=== PATIENT | female | born 1985 | race Caucasian/White ===

== ENCOUNTER 2017-05-02 13:41 | Emergency (ER) | payer SELFPAY | END 2017-05-02 15:40 | LOC: ED 13:41 | DX: N93.9 Abnormal uterine and vaginal bleeding, unspecified (principal); Z53.21 Procedure and treatment not carried out due to patient leaving prior to being seen by health care provider ==

== ENCOUNTER 2018-02-28 14:49 | Emergency (ER) | payer MEDICAID ==
[2018-02-28 15:16] LABS: Basophils % (Auto) 0.6 % (0.0-1.8); Eosinophils % (Auto) 0.3 % (0.0-4.3); Hematocrit 36.1 % (30.3-42.9); Hemoglobin 12.3 gm/dl (10.1-14.3); Lymphocytes # (Auto) 1.5 K/mm3 (1.2-5.4); Mean Corpuscular HGB Conc 34 % (30-34); Mean Corpuscular Hemoglobin 31 pg (28-32); Mean Corpuscular Volume 90 fl (79-97); Monocytes # (Auto) 0.5 K/mm3 (0.0-0.8); Monocytes % (Auto) 7.6 % (0.0-7.3); Platelet Count 388 K/mm3 (140-440); Red Blood Count 4.03 M/mm3 (3.65-5.03); Red Cell Distribution Width 15.5 % (13.2-15.2)
[2018-02-28 15:48] VITALS: BP 135/87
--- NOTE | 2018-02-28 16:33 | Emergency Department Report ---
ED Female HPI - General Chief complaint: Vaginal Bleeding Stated complaint: BLEEDING EXCESSIVE Time Seen by Provider: 02/28/18 16:05 Source: patient Mode of arrival: Ambulatory Limitations: No Limitations - History of Present Illness Initial comments: Previously healthy 32-year-old female presents with 3 week history of persistent vaginal bleeding which began initially as spotting during the course of the day, but has progressed over the past 3 or 4 days to heavier bleeding, requiring patient to use upwards of a dozen tampons per day, Entex tampon so far today. She initially had no abdominal discomfort, but she now has a persistent bilateral lower pelvic discomfort, no back pain. She has no prior history of irregular vaginal bleeding or menstrual irregularities, and her last regular menstrual cycle was 4 weeks ago, February 03, lasting typical 5 days, and she typically has a heavy flow. She has a past history of anemia, but is fairly mild, managed primarily with diet and extra dietary iron She's not had any fever chills or diaphoresis, no dysuria, no nausea or vomiting , no back or extremity pain. Past medical history is one of good health, patient is , last child delivered by section 7 years ago. She did not had any vaginal or menstrual problems since that time, has been essentially asymptomatic, but has not had routine gynecologic care for at least 5 years, does not know last time she's had a Pap smear. - Related Data Previous Rx's Medication Instructions Recorded Last Taken Type Ibuprofen [Ibu] 800 mg PO TID PRN #30 tablet 02/28/18 Unknown Rx medroxyPROGESTERone ACETATE 10 mg PO DAILY #7 tablet 02/28/18 Unknown Rx [Medroxyprogesterone Acetate] Allergies Allergy/AdvReac Type Severity Reaction Status Date / Time amoxicillin Allergy Hives Verified 02/28/18 14:54 ED Review of Systems ROS: Stated complaint: BLEEDING EXCESSIVE Other details as noted in HPI Comment: All other systems reviewed and negative Constitutional: denies: chills, fever Respiratory: denies: cough, shortness of breath, wheezing Cardiovascular: denies: chest pain, palpitations Gastrointestinal: denies: abdominal pain, nausea, diarrhea Genitourinary: as per HPI, other (vaginal bleeding, as described). denies: urgency, dysuria, discharge Musculoskeletal: denies: back pain, joint swelling, arthralgia Skin: denies: rash, lesions Neurological: denies: headache, weakness, paresthesias ED Past Medical Hx - Past Medical History Previous Medical History?: No - Surgical History Additional Surgical History: C SECTION X2 - Social History Smoking Status: Current Every Day Smoker Substance Use Type: None - Medications Home Medications: Home Medications Medication Instructions Recorded Confirmed Last Taken Type Ibuprofen [Ibu] 800 mg PO TID PRN #30 tablet 02/28/18 Unknown Rx medroxyPROGESTERone ACETATE 10 mg PO DAILY #7 tablet 02/28/18 Unknown Rx [Medroxyprogesterone Acetate] ED Physical Exam - General Limitations: No Limitations General appearance: alert, in no apparent distress - Head Head exam: Present: atraumatic - Eye Eye exam: Present: PERRL - ENT ENT exam: Present: normal exam, mucous membranes moist - Neck Neck exam: Present: normal inspection. Absent: tenderness - Respiratory Respiratory exam: Present: normal lung sounds bilaterally - Cardiovascular Cardiovascular Exam: Present: regular rate, normal rhythm, normal heart sounds - GI/Abdominal GI/Abdominal exam: Present: soft, normal bowel sounds. Absent: tenderness, guarding, rebound - Rectal Rectal exam: Present: deferred - Extremities Exam Extremities exam: Present: normal inspection - Back Exam Back exam: Present: normal inspection. Absent: tenderness, CVA tenderness (R), CVA tenderness (L) - Neurological Exam Neurological exam: Present: alert, oriented X3, CN II-XII intact. Absent: motor sensory deficit - Psychiatric Psychiatric exam: Present: normal affect, normal mood ED Course Vital Signs 02/28/18 02/28/18 02/28/18 14:55 15:27 15:30 Temperature 36.8 C Pulse Rate 79 Respiratory 18 Rate Blood Pressure 127/73 141/78 O2 Sat by Pulse 100 100 100 Oximetry 02/28/18 15:45 Temperature Pulse Rate Respiratory Rate Blood Pressure 135/87 O2 Sat by Pulse 100 Oximetry - Reevaluation(s) Reevaluation #1: 02/28/18 18:41 Stable on recheck, still having some minor bleeding, but no significant worsening, no clots ED Medical Decision Making - Lab Data Result diagrams: 02/28/18 15:01 - Medical Decision Making Patient appears to be having dysfunctional bleeding, test is negative , ultrasound shows small fibroid, and small ovarian cyst, but otherwise no acute findings. We will treat her with progesterones, didn't stimulate withdrawal bleeding afterwards, and she should have recheck with her primary health care nurse, with whom she is already established, in one or 2 weeks. - Differential Diagnosis dysfunctional uterine bleeding, miscarriage, ectopic , menometrorr Critical care attestation.: If time is entered above; I have spent that time in minutes in the direct care of this critically ill patient, excluding procedure time. ED Disposition Clinical Impression: Dysfunctional uterine bleeding Disposition: - TO HOME OR SELFCARE Is pt being admited?: No Does the pt Need Aspirin: No Condition: Stable Instructions: Dysfunctional Uterine Bleeding (ED) Additional Instructions: We have evaluated U today for abnormal vaginal bleeding, ultrasound examination was unremarkable, although there was a small fibroid, and a small ovulatory cyst or ovary. Otherwise everything else was normal, and she were not anemic. We are treating with progesterone hormones, medroxyprogesterone, and want to take 10 mg daily for the next 7 days. This should control bleeding shortly, and will cause withdrawal bleeding after you stopped medications. This bleeding will last for several days like a normal period and should clear up. With her primary health care nurse after cessation of hormones, for repeat examination to see how you're doing. Take ibuprofen 3 times a day for discomfort. Prescriptions: Ibuprofen [Ibu] 800 mg PO TID PRN #30 tablet PRN Reason: Pain , Severe (7-10) medroxyPROGESTERone ACETATE [Medroxyprogesterone Acetate] 10 mg PO DAILY #7 tablet Referrals: PRIMARY CARE, [Primary Care Provider] - 3-5 Days Time of Disposition: 18:43
[2018-02-28] MEDS ORDERED: TYLENOL PO ONE (16:36)
[2018-02-28] MEDS ORDERED: TYLENOL ONE (16:38)
--- NOTE | 2018-02-28 17:46 | Ultrasound Report ---
FINAL REPORT EXAM: US TRANSVAGINAL HISTORY: vaginal bleeding, not last menstrual period February 12, 2018 TECHNIQUE: Grayscale, color flow and Doppler waveform imaging of the pelvis was performed. Comparison: Transabdominal study also performed today FINDINGS: The uterus is notable for an approximately 1.9 centimeter x 1.7 centimeter x 1.9 centimeter fibroid in the posterior body of the uterus. Endometrial thickness measures 5.4 millimeters. The cervix is unremarkable in appearance. The left ovary measures 2.7 centimeters x 1.5 centimeters x 1.8 centimeters and contains an approximately 11 millimeter complex dominant follicle or small cyst with internal echoes. The right ovary measures 2.6 centimeters x 1.5 centimeters x 2.4 centimeters and is unremarkable in appearance. Arterial and venous flow is demonstrated in both ovaries utilizing color flow and Doppler waveform imaging. No free fluid is demonstrated in the pelvis. IMPRESSION: 1. Approximately 1.9 centimeter uterine fibroid posterior body. 2. Approximately 11 millimeter complex dominant follicle or small cyst with internal echoes. Possible involuting follicle or small hemorrhagic cyst.
--- NOTE | 2018-02-28 18:24 | Ultrasound Report ---
FINAL REPORT EXAM: US PELVIC COMPLETE HISTORY: vaginal bleeding, not TECHNIQUE: Ultrasound pelvis transabdominal PRIORS: None. FINDINGS: The uterus measures 7.8 x 4.3 x 5.0 centimeters At the posterior body of the uterus there is a uterine fibroid measuring 1.9 x 1.7 x 1.9 centimeter not changed from prior exam. Endometrial thickness is 0.54 centimeters Right ovary is 2.6 x 1.5 x 2.4 centimeters Left ovary is 2.7 x 1.5 x 1.8 centimeters There is a 1.1 centimeter cyst within the left ovary. IMPRESSION: 1.9 centimeter uterine fibroid
== END 2018-02-28 19:05 | disposition home or self-care (01) ==
LOC: ED 14:49
DX: N93.8 Other specified abnormal uterine and vaginal bleeding (principal); F17.200 Nicotine dependence, unspecified, uncomplicated; Z88.1 Allergy status to other antibiotic agents
CPT/HCPCS: 36415; 76830; 76856; 84702; 85025; 86850; 86900; 86901